=== PATIENT | male | born 1970 | race Hispanic/Latino ===

== ENCOUNTER 2021-10-28 10:57 | Emergency (ER) | payer SELFPAY ==
--- NOTE | ~2021-10-28 | XR_ITS ---
EXAMINATION: XR chest 2V DATE: 10/28/2021 11:56 INDICATION: Productive cough TECHNIQUE: PA and lateral views of the chest are obtained. COMPARISON: None available FINDINGS: There are airspace opacities of the left lung base. There is no pleural effusion or pneumot horax. The cardiomediastinal silhouette is normal. There is mild thoracic spondylosis. IMPRESSION: 1. Minimal airspace opacities of the left lung base, consistent with atelectasis versus pneumonia. Reviewed, dictated and finalized at location A. DRAWER IMPRESSION: 1. Minimal airspace opacities of the left lung base, consistent with atelectasi s versus pneumonia.
[2021-10-28 11:08] VITALS: BP 127/75; PULSE 96; RESP 16; TEMP 36.8; O2SAT 98
--- NOTE | 2021-10-28 11:38 | ED.GENADULT ---
HPI - General Adult General Chief complaint: Upper Respiratory Infection Stated complaint: Cough,Back Pain Source: patient Mode of arrival: ambulatory Limitations: no limitations History of Present Illness HPI narrative: Patient is a 51-year-old male who presents to the [facility] via POV accompanied by adult son for evaluation of a painful, productive cough that has been present for approximately 4 days. Additionally, he reports intermittent frontal headache. He experiences chest pain and back pain with coughing. Sudafed provides some relief. Nothing worsens symptoms. He reports his sputum production is a green color in the mornings and clear/white throughout the day. He has not had the Covid vaccination although it is scheduled for a Covid test at [facility] tomorrow. He is concerned he may have pneumonia prompting today's visit. Related Data Home Medications Medication Instructions Recorded Confirmed lisinopril 10/28/21 10/28/21 Allergies Allergy/AdvReac Type Severity Reaction Status Date / Time aspirin Allergy Unknown facial Verified 10/28/21 11:15 swelling Review of Systems Review of Systems: Denies history of COPD, bronchitis, asthma, and pneumonia. Denies past tobacco use. Pertinent negatives: fever, sweats, chills, change in appetite, fatigue, skin color changes, severe persistent headache, nasal congestion/discharge, dizziness, lymphadenopathy, sinus problems, ear pain/drainage, chest pain, heart murmurs, heart palpitations, shortness of breath, wheezing, cyanosis, hemoptysis, hoarseness, orthopnea, pleuritic pain, nausea, vomiting, diarrhea, and myalgias. [facility] Past Medical History Medical History (Updated 10/28/21 @ 12:09 by Tammy Macias, [facility], ) Hypertension Comments I have reviewed and agree with the patient's past medical, surgical, social, and family hx as documented by the RN. There is no relevant family history pertinent to the presenting complaint. Exam Narrative: GENERAL: Well-appearing, well-nourished, and in no acute distress. HEAD: Normocephalic, atraumatic. No sinus tenderness or facial swelling appreciated. EYES: PERRLA and EOMI. No evidence of erythema, swelling, or drainage. ENT: Left TM with clear effusion. Right TM normal. Bilateral external ears and ear canals normal. No TM perforation. Nares clear, no rhinorrhea or epistaxis. Bilateral turbinates without erythema/ swelling. Mucous membranes moist and pink. Uvula is midline without erythema and swelling. No evidence of petechial rash, cobblestoning, lesions, ulcers, erythema, swelling, exudates, peritonsillar abscess, tenting, or drooling. Breath odor and voice normal. NECK: Supple. No Lymphadenopathy or nuchal rigidity appreciated. CHEST: Bilateral lung french are clear to auscultation. No respiratory distress. No evidence pleuritic cp upon examination. Mild dry cough appreciated upon examination. HEART: Regular rate and rhythm. No murmur, gallop, or rub heard. EXTREMITIES: Normal range of motion. No edema. SKIN: Warm, dry, no rash. NEURO: No focal deficits. Alert and oriented x3. Course Vital Signs Vital signs: Vital Signs Temperature 98.2 F 10/28/21 11:08 Pulse Rate 96 10/28/21 11:08 Respiratory Rate 16 10/28/21 11:08 Blood Pressure 127/75 10/28/21 11:08 Pulse Oximetry 98 10/28/21 11:08 Temperature 98.2 F 10/28/21 11:08 Pulse Rate 96 10/28/21 11:08 Respiratory Rate 16 10/28/21 11:08 Blood Pressure 127/75 10/28/21 11:08 Pulse Oximetry 98 10/28/21 11:08 Reviewed Medical Decision Making Differential Diagnosis Differential Diagnosis: Allergic rhinitis, ABRS, acute viral sinusitis, strep pharyngitis, nasopharyngitis, bronchitis, pneumonia, AOM, otitis externa, viral URI, influenza, covid-19 Medical Records Medical records reviewed: Yes I reviewed the external patient's medical records. Vital Signs Vital Signs: Vital Signs Temperature 98.2 F 10/28/21 11
== END 2021-10-28 12:20 | disposition home or self-care (01) ==
PROVIDERS: Emergency Provider Nurse Practitioner Family; PCP Physician Assistant
DX: R05.9 Cough, unspecified (principal); I10 Essential (primary) hypertension
CPT/HCPCS: 71046; 99213; G0463

== ENCOUNTER 2022-04-15 08:24 | Outpatient (CLI) | payer SELFPAY ==
--- NOTE | 2022-04-15 08:51 | EST_ITS ---
Patient Info Name: Satya Phillips Age: 52 years : 1970 Gender: Male Ht: 63 in Wt: 185 lbs BSA: 1.96 m2 Technical Quality: Good Exam Date: 04/15/2022 9:23 AM Exam Location: [facility] Patient Status: Outpatient Admit Date: 04/15/2022 Staff Ordering Physician: Jacy Jimenez DO Sedimentationist: Marlene Duque RDCS Attending Provider: JACY JIMENEZ DO Referring Physician: Steve RODRÍGUEZ; Exercise Technologist: Yolette Arnett RDCS Exercise Physician: Jacy Jimenez DO Exam Type: CA stress echo Study Info Indications R06.00 - Dyspnea, unspecified Treadmill exercise stress echocardiogram is performed. Summary 1. 1. Negative Franky exercise stress test for ischemic ST changes by ECG criteria. 2. 2. Reduced functional capacity, achieving 10 METs of workload. 3. 3. Appropriate HR response to exercise. 4. 4. Appropriate HR recovery at 1 minute post exercise. 5. 5. Negative stress echocardiogram for ischemia by wall motion analysis. 6. 6. Patient informed of the above results. Stress Echo Findings Left Ventricle Appropriate increase in LV endocardial thickening with systole. Appropriate augmentation of contractility with systole. No wall motion abnormality. Left Ventricle Normal LV systolic function, no wall motion abnormality. Protocol: Franky Stress ECG Details Stage: REST Duration (min): 6 min : 23 sec Speed (mph): 0.0 Grade (%): 0 HR (bpm): 56 SBP (mmHg): 134 DBP (mmHg): 89 METS: --- Stage: REST Duration (min): 13 min : 43 sec Speed (mph): 0.0 Grade (%): 0 HR (bpm): 59 SBP (mmHg): 134 DBP (mmHg): 89 METS: --- Stage: STAGE 1 Duration (min): 1 min : 0 sec Speed (mph): 1.7 Grade (%): 10 HR (bpm): 93 SBP (mmHg): 134 DBP (mmHg): 89 METS: --- Stage: STAGE 1 Duration (min): 2 min : 0 sec Speed (mph): 1.7 Grade (%): 10 HR (bpm): 98 SBP (mmHg): 134 DBP (mmHg): 89 METS: --- Stage: STAGE 1 Duration (min): 3 min : 0 sec Speed (mph): 1.7 Grade (%): 10 HR (bpm): 100 SBP (mmHg): 178 DBP (mmHg): 80 METS: --- Stage: STAGE 2 Duration (min): 1 min : 0 sec Speed (mph): 2.5 Grade (%): 12 HR (bpm): 113 SBP (mmHg): 178 DBP (mmHg): 80 METS: --- Stage: STAGE 2 Duration (min): 2 min : 0 sec Speed (mph): 2.5 Grade (%): 12 HR (bpm): 119 SBP (mmHg): 182 DBP (mmHg): 87 METS: --- Stage: STAGE 2 Duration (min): 3 min : 0 sec Speed (mph): 2.5 Grade (%): 12 HR (bpm): 118 SBP (mmHg): 182 DBP (mmHg): 87 METS: --- Stage: STAGE 3 Duration (min): 1 min : 0 sec Speed (mph): 3.4 Grade (%): 14 HR (bpm): 142 SBP (mmHg): 206 DBP (mmHg): 89 METS: --- Stage: STAGE 3 Duration (min): 2 min : 0 sec Speed (mph): 0.0 Grade (%): 0 HR (bpm): 156 SBP (mmHg): 206 DBP (mmHg): 89 METS: --- Stage: STAGE 3 Duration (min): 2 min : 1 sec Speed (mph): 0.0
== END 2022-04-15 08:25 | disposition home or self-care (01) ==
PROVIDERS: PCP Physician Assistant; Visit Provider Internal Medicine Cardiovascular Disease
DX: R06.00 Dyspnea, unspecified (principal)
CPT/HCPCS: 93351